=== PATIENT | female | born 1995 | race Caucasian/White ===

== ENCOUNTER 2017-09-25 01:03 | Emergency (ER) | payer SELFPAY ==
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
--- OUTSIDE RECORDS SUMMARY | 2017-09-25 01:06 | XMS REPORT | Summary of Care ---
:1995 Author Organization [facility] Address [address] [place], [place] [address]- Encounter HQ Ric(PRIYANKA) [id number] Date(s): 03/19/16 - 03/19/16 [facility] [address] [place] [address]- Discharge Diagnosis: Osteochondroma Discharge Disposition: Home or Self Care Attending Physician: Ravinder Sanchez MD Vital Signs Most recent to oldest [Reference Range]: 1 2 Temperature Oral [96.4-99.1 DegF] 98.0 DegF 98.2 DegF (03/19/16 12:03 PM) (03/19/16 10:57 AM) Blood Pressure [90-140/60-90 mmHg] 125/78 mmHg 133/83 mmHg (03/19/16 12:03 PM) (03/19/16 10:57 AM) Respiratory Rate [14-20 BRMIN] 16 BRMIN 18 BRMIN (03/19/16 12:03 PM) (03/19/16 10:57 AM) Peripheral Pulse Rate [60-100 bpm] 61 bpm 58 bpm (03/19/16 12:03 PM) *LOW* (03/19/16 10:57 AM) Weight 96.409 kg (03/19/16 10:57 AM) Problem List No data available for this section Allergies, Adverse Reactions, Alerts Substance Reaction Severity Status NKDA Active Medications No data available for this section Results No data available for this section Immunizations No data available for this section Procedures No data available for this section Social History Social History Type Response Smoking Status Light tobacco smoker; Previous treatment: None; Ready to change : No; Concerns about tobacco use in household: No; Exposure to Tobacco Smoke None; Cigarette Smoking Last 365 Days No; Reg Smoking Cessation Counseling Yes Assessment and Plan No data available for this section
--- OUTSIDE RECORDS SUMMARY | 2017-09-25 01:06 | XMS REPORT | Summary of Care ---
:1995 Author Organization [facility] Address [address] [place], [place] [address]- Encounter HQ Encntr_sonu(FIN) [id number] Date(s): 05/11/16 - 05/11/16 [facility] [address] [place] [address]- Discharge Disposition: Left Without Being Seen Vital Signs Most recent to oldest [Reference Range]: 1 Temperature Oral [96.4-99.1 DegF] 98.1 DegF (05/11/16 12:08 PM) Blood Pressure [90-140/60-90 mmHg] 107/76 mmHg (05/11/16 12:08 PM) Respiratory Rate [14-20 BRMIN] 18 BRMIN (05/11/16 12:08 PM) Peripheral Pulse Rate [60-100 bpm] 82 bpm (05/11/16 12:08 PM) Weight 90 kg (05/11/16 12:08 PM) Problem List No data available for this [...]
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
[2017-09-25] MEDS ORDERED: ACETAMINOPHEN 500 MG TAB ONE (01:44)
[2017-09-25 01:56] LABS: Urine Blood TRACE (NEG); Urine Glucose NEGATIVE (NEG); Urine Protein NEGATIVE (NEG); Urine Specific Gravity <1.005 (1.005-1.030); Urine pH 6.5 (5.0-7.0)
[2017-09-25 01:57] LABS: Absolute Lymphocytes (CBC) 2.4 K/uL (0.7-4.9); Absolute Monocytes 0.6 K/uL (0.1-1.3); Absolute Neutrophil 4.5 K/uL (1.8-8.0); Basophils % 0.7 % (0-1.3); Eosinophils % 1.8 % (0-4.4); Hematocrit 47.6 % (36.0-45.0); Lymphocytes % 31.4 % (15.3-44.8); MCV 96.9 fL (80-100); MPV 8.9 fL (7.6-11.3); Monocytes % 7.4 % (3.3-12.3); RBC Red Blood Cell Count 4.92 M/uL (3.86-4.86)
[2017-09-25 02:07] LABS: BUN Blood Urea Nitrogen 10 mg/dL (7-18); Bicarbonate 30 mmol/L (21-32); Glucose Level 63 mg/dL (74-106); Potassium 3.4 mmol/L (3.5-5.1); Sodium Level 143 mmol/L (136-145)
--- NOTE | 2017-09-25 02:28 | ER ---
Nurse's Notes [facility] Name: Titi Mcduffie Age: 22 yrs Sex: Female : 1995 Arrival Date: 09/25/2017 Time: 01:04 Bed 7 Private MD: Diagnosis: Abnormal uterine and vaginal bleeding, unspecified Presentation: 09/25 01:16 Presenting complaint: Patient states: she has an IUD which came out yesterday she was bb having vaginal bleeding about 4 days prior to this with abdominal cramping then tonight she went out and had a drink then had worse abdominal cramping she is also still bleeding similar to a menstrual cycle. Her last menstrual cycle was 4 years ago. Transition of care: patient was not received from another setting of care. Onset of symptoms was September 25, 2017. Risk Assessment: Do you want to hurt yourself or someone else? Patient reports no desire to harm self or others. Initial Sepsis Screen: Does the patient meet any 2 criteria? No. Patient's initial sepsis screen is negative. Does the patient have a suspected source of infection? No. Patient's initial sepsis screen is negative. Care prior to arrival: None. 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 - Social history:: Smoking status: Patient uses tobacco products, smokes one-half pack cigarettes per day, Patient uses alcohol, occasionally. Patient/guardian denies using street drugs. - Ebola Screening: : No symptoms or risks identified at this time. Screenin:30 Abuse screen: Denies threats or abuse. Denies injuries from another. Nutritional aa1 screening: No deficits noted. Tuberculosis screening: No symptoms or risk factors identified. Fall Risk None identified. Assessment: 01:30 General: Appears in no apparent distress. comfortable, Behavior is calm, cooperative, aa1 appropriate for age. General: Smells of alcohol. Pain: Complains of pain in suprapubic area Quality of pain is described as crushing. Neuro: Level of Consciousness is awake, alert, obeys commands, Oriented to person, place, time, situation, Moves all extremities. Full function Gait is steady. Respiratory: Airway is patent Respiratory effort is even, unlabored, Respiratory pattern is regular, symmetrical. GI: No signs and/or symptoms were reported involving the gastrointestinal system. : Urine is clear, Reports cramping, vaginal bleeding that is light flow. EENT: No signs and/or symptoms were reported regarding the EENT system. Derm: Skin is intact, is healthy with good turgor, Skin is pink, warm \T\ dry. Musculoskeletal: Circulation, motion, and sensation intact. Capillary refill < 3 seconds. 03:02 Reassessment: Patient appears in no apparent distress at this time. Patient and/or tl2 family updated on plan of care and expected duration. Pain level reassessed. Patient is alert, oriented x 3, equal unlabored respirations, skin warm/dry/pink. Pt ambulatory out of ER. Vital Signs: 01:24 BP 131 / 86; Pulse 87; Resp 16; Temp 97.1(O); Pulse Ox 98% on R/A; Weight 68.49 kg (R); bb Height 5 ft. 4 in. (162.56 cm) (R); Pain 6/10; 01:43 BP 108 / 70 Supine; Pulse 71; aa1 01:45 BP 112 / 76 Sitting; Pulse 79; aa1 01:47 BP 117 / 87 Standing; Pulse 85; aa1 01:24 Body Mass Index 25.92 (68.49 kg, 162.56 cm) ED Course: 01:04 Patient arrived in ED. ds1 01:22 Triage completed. bb 01:23 Hill Jaramillo PA is PHCP. cp 01:23 Hill Grady MD is Attending Physician. cp 01:24 Arm band placed on Patient placed in an exam room, on a stretcher, on pulse oximetry. bb Family accompanied patient. 01:25 Joy Walden, TAYLOR is Primary Nurse. aa1 01:30 Patient has correct armband on for positive identification. Bed in low position. Call aa1 light in reach. Pulse ox on. NIBP on. Warm blanket given. 01:40 Initial lab(s) drawn, by ED staff, sent to lab. Urine collected: clean catch specimen, aa1 clear. 03:02 No provider procedures requiring assistance completed. Patient did not have IV access tl2 during this emergency room visit. Administered Medications: 01:46 Drug: Tylenol 1000 mg Route: PO; aa1 03:04 Follow up: Response: No adverse reaction tl2 Outcome: 02:27 Discharge ordered by MD. iglesias 03:02 Discharged to home ambulatory, with family. tl2 03:02 Condition: stable 03:02 Discharge instructions given to patient, Instructed on discharge instructions, follow up and referral plans. 03:04 Patient left the ED. tl2 Signatures: Joy Walden, RN RN aa1 Augusta Cyr ds1 Donya Ulrich RN RN bb Hill Jaramillo PA PA cp Knox, Taylor RN RN tl2
--- NOTE | 2017-09-25 02:28 | EDPHYS ---
Physician Documentation [facility] Name: Titi Mcduffie Age: 22 yrs Sex: Female : 1995 Arrival Date: 09/25/2017 Time: 01:04 Bed 7 Private MD: ED Physician Hill Grady HPI: 09/25 01:30 This 22 yrs old Female presents to ER via Wheelchair with complaints of cp Vaginal Bleeding, Abdominal Cramping. 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 - Social history:: Smoking status: Patient uses tobacco products, smokes one-half pack cigarettes per day, Patient uses alcohol, occasionally. Patient/guardian denies using street drugs. - Ebola Screening: : No symptoms or risks identified at this time. ROS: 01:35 Constitutional: Negative for body aches, chills, fever, poor PO intake. cp 01:35 Positive for vaginal spotting, Negative for urinary symptoms. cp 01:35 Eyes: Negative for injury, pain, redness, and discharge. 01:35 Abdomen/GI: Positive for nausea, abdominal cramps, of the right lower quadrant and left lower quadrant, Negative for diarrhea, constipation, anorexia, active vomiting. 01:35 Back: Negative for pain at rest, pain with movement, radiated pain. 01:35 : Negative for urinary symptoms. 01:35 Skin: Negative for cellulitis, rash. 01:35 Neuro: Negative for altered mental status, dizziness, syncope, near syncope, weakness. 01:35 All other systems are negative. Exam: 01:40 Constitutional: The patient appears in no acute distress, alert, awake, non-toxic, well cp developed, well nourished. 01:40 Head/Face: Normocephalic, atraumatic. cp Vital Signs: 01:24 BP 131 / 86; Pulse 87; Resp 16; Temp 97.1(O); Pulse Ox 98% on R/A; Weight 68.49 kg (R); bb Height 5 ft. 4 in. (162.56 cm) (R); Pain 6/10; 01:43 BP 108 / 70 Supine; Pulse 71; aa1 01:45 BP 112 / 76 Sitting; Pulse 79; aa1 01:47 BP 117 / 87 Standing; Pulse 85; aa1 01:24 Body Mass Index 25.92 (68.49 kg, 162.56 cm) bb MDM: 01:23 Patient medically screened. cp 02:26 Data reviewed: vital signs, nurses notes, lab test result(s). Response to treatment: cp VSS. Patient sleeping in exam room. 09/25 01:32 Order name: CBC with Diff; Complete Time: 02:00 cp 09/25 02:00 Interpretation: Normal except: RBC 4.92; HGB 16.2; HCT 47.6. cp 09/25 01:32 Order name: BMP; Complete Time: 02:20 cp 09/25 02:20 Interpretation: K 3.4; CL 109; GLUC 63. cp 09/25 01:36 Order name: Test, Serum rg2 09/25 01:36 Order name: Test Serum, Qualitat; Complete Time: 02:20 EDMS 09/25 01:37 Order name: Urine Dipstick--Ancillary (enter results); Complete Time: 02:00 rg2 09/25 01:24 Order name: Orthostatics; Complete Time: 01:46 cp 09/25 01:24 Order name: Urine Dipstick-Ancillary (obtain specimen); Complete Time: 01:38 cp 09/25 01:24 Order name: Urine Test (obtain specimen); Complete Time: 01:38 cp Administered Medications: 01:46 Drug: Tylenol 1000 mg Route: PO; aa1 03:04 Follow up: Response: No adverse reaction tl2 Disposition: 09/25/17 02:27 Discharged to Home. Impression: Abnormal uterine and vaginal bleeding, unspecified. - Condition is Stable. - Discharge Instructions: Abnormal Uterine Bleeding, Dysfunctional Uterine Bleeding. - Medication Reconciliation Form, Thank You Letter, Antibiotic Education, Prescription Opioid Use form. - Follow up: Private Physician; When: 1 - 2 days; Reason: Recheck today's complaints. - Problem is new. - Symptoms have improved. Addendum: 09/27/2017 08:56 Co-signature as Attending Physician, Hill Grady MD I agree with the assessment and c rahman plan of care. Signatures: Dispatcher [employer] EDJoy Yung RN RN aa1 Hill Grady MD MD cha Ballard, Brenda RN RN Hill Matta, Evelyn Bell cp RN RN tl2 Corrections: (The following items were deleted from the chart) 09/25 01:38 01:24 Jenkins ordered. cp aa1 03:04 02:27 09/25/2017 02:27 Discharged to Home. Impression: Abnormal uterine and vaginal tl2 bleeding, unspecified. Condition is Stable. Forms are Medication Reconciliation Form, Thank You Letter, Antibiotic Education, Prescription Opioid Use. Follow up: Private Physician; When: 1 - 2 days; Reason: Recheck today's complaints. Problem is new. Symptoms have improved. cp
[2017-09-25 03:15] VITALS: TEMP 97.1; O2SAT 98
[2017-09-25 03:18] VITALS: BP 117/87
== END 2017-09-25 03:04 | disposition home or self-care (01) ==
LOC: ER 01:03
DX: N93.9 Abnormal uterine and vaginal bleeding, unspecified (principal); Z98.84 Bariatric surgery status; F17.210 Nicotine dependence, cigarettes, uncomplicated
CPT/HCPCS: 36415; 80048; 81003; 84703; 85025; 99283

== ENCOUNTER 2020-07-28 21:06 | Emergency (ER) | payer SELFPAY ==
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
--- NOTE | 2020-07-28 21:37 | ER ---
Nurse's Notes [facility] Name: Titi Mcduffie Age: 25 yrs Sex: Female : 1995 Arrival Date: 07/28/2020 Time: 21:08 Bed Waiting Private MD: Diagnosis: ED Course: 07/28 21:08 Patient arrived in ED. am4 Administered Medications: No medications were administered Outcome: 21:36 Patient left the ED. ea Signatures: Maryuri Renae RN RN Xena Connolly am4
== END 2020-07-28 21:36 | disposition left against medical advice (07) ==
LOC: ER 21:06
DX: Z02.9 Encounter for administrative examinations, unspecified (principal)

== ENCOUNTER 2022-10-04 18:27 | Emergency (ER) | payer OTHER ==
--- OUTSIDE RECORDS SUMMARY | 2022-10-04 18:38 | XMS REPORT | Continuity of Care Document ---
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 MATERNAL [id number] [address] 2021-07-02 2021-07-02 Emergency X GREGORY [facility] ERT [id number] Univers 18:29:00 19:31:00 [facility] 2021-07-02 2021-07-02 Emergency Gregory [facility] 1.2.907.176 [id number] Univers 18:29:00 19:31:00 Taran JIANG 350.1.13.10 i ty [facility] 4.2.7.2.686 [place] [id number] [facility] 084 [place] 2021-06-25 2021-06-25 Outpatient Danisha MILLER [facility] [id number] Univers 15:30:00 16:26:09 ROSEMYNDA ity o f [facility] 2021-06-25 2021-06-25 [facility] 1.2.840.114 [id number] Univers 15:30:00 16:26:09 Lizabethnda R HULL BUILDER 350.1.13.10 ity of Visit REGIONAL 4.2.7.2.686 Jeffrey as MATERNAL [id number] [facility] [address] [place] [address] 2021-06-25 2021-06-25 [facility] [id number] Univers 15:30:00 15:30:00 ROSEMYNDA ity o f [facility] 2021-06-25 2021-06-25 Orders Doctor PRASANTH 1.2.840.114 [id number] Univers 00:00:00 00:00:00 Only Unassigned, MARCO 350.1.13.10 ity of [place] [facility] 4.2.7.2.686 Jeffrey as [id number] [facility] 009 [place] 2021-06-16 2021-06-16 Abstract [facility] 1.2.840.114 [id number] Univers 00:00:00 00:00:00 Bri Bazzi HULL BUILDER 350.1.13.10 ity of REGIONAL 4.2.7.2.686 Jeffrey as MATERNAL [id number] [facility] CH[facility] [address] [place] [address] 2021-06-12 2021-06-12 Outpatient P NATASHA [facility] [id number] Univers 15:30:00 16:53:59 HILL ity of [facility] 2021-06-12 2021-06-12 Hotel Registration Clerk 5, [facility] Us Room UNIVERSIT 1 .2.840.114 [id number] Univers 15:30:00 16:00:00 Visit Hill Gracia [facility] 350.1.13.10 ity of CLINICS 4.2.7.2.[place] [id number] [facility] [address] [place] 2021-06-12 2021-06-12 Outpatient P NATASHA [facility] [id number] Univers 15:30:00 15:30:00 HILL ity of [facility] 2021-06-12 2021-06-12 Telephone [facility] 1.2.151.641 [id number] Univers 00:00:00 00:00:00 Roshunda R HULL BUILDER 350.1.13.10 ity of [employer] 4.2.7.2.686 Jeffrey as MATERNAL [id number] [facility] [address] [place] [address] 2021-06-11 2021-06-11 Outpatient Danisha MILLER [facility] [id number] Univers 10:30:00 11:05:20 ROSHUNDA ity o f [facility] 2021-06-11 2021-06-11 [facility] 1.2.840.114 [id number] Univers 10:30:00 11:05:20 Roshunda R HULL BUILDER 350.1.13.10 ity of [facility] 4.2.7.2.686 Jeffrey as MATERNAL [id number] [facility] & CHILD [address] [place] [address] 2021-06-11 2021-06-11 Outpatient Danisha MILLER [facility] [id number] Univers 10:30:00 10:30:00 ROSEMYNDA ity o f [facility] 2021-05-30 2021-05-30 Outpatient P STEVE TEJADAN [facility] JIGAR [id number] Univers 14:40:00 16:44:00 ity of [facility] 2021-05-30 2021-05-30 [facility] Steve Tejadan [facility] 1.2.840.114 [id number] Univers 14:40:00 16:44:00 Encounter [place] 350.1.13.10 ity [facility] 4.2.7.2.[address] [place] [facility] [id number] [address] 2021-05-30 2021-05-30 Outpatient R PHYLICIA FISHER [facility] [id number] Univers 10:30:00 10:30:00 ity of [facility] 2021-05-26 2021-05-26 Outpatient Danisha MILLER [facility] [id number] Univers 16:15:00 16:15:00 ROSHUNDA ity o f [facility] 2021-05-232021-05-23 Abstract [facility] 1.2.840.114 [id number] Univers 00:00:00 00:00:00 Bri C HULL BUILDER 350.1.13.10 ity of [employer] 4.2.7.2.686 Jeffrey as MATERNAL [id number] [facility] & CHILD [address] [place] [address] 2021-05-23 2021-05-23 [facility] 1.2.840.114 [id number] Univers 00:00:00 00:00:00 Rbi C HULL BUILDER 350.1.13.10 ity of [employer] 4.2.7.2.686 Jeffrey as MATERNAL [id number] [address] 2021-05-22 2021-05-22 Outpatient P PAULA HENLEY [facility] [id number] Univers 15:30:00 16:46:54 [facility] 2021-05-22 2021-05-22 Outpatient P PAULA HENLEY [facility] [id number] Univers 15:30:00 16:46:54 [facility] 2021-05-22 2021-05-22 Hotel Registration Clerk 4, [facility] Us Room UNIVERSIT 1 .2.840.114 [id number] Univers 15:30:00 16:46:54 Visit Paula Henley [facility] 350.1.13.10 ity of [facility] 4.2.7.2.[place] [id number] [address] 2021-05-21 2021-05-21 Telephone [facility] 1.2.699.826 [id number] Univers 00:00:00 00:00:00 Elier R HULL BUILDER 350.1.13.10 ity of [employer] 4.2.7.2.686 Jeffrey as MATERNAL [id number] [facility] & CHILD [address] [place] [address] 2021-05-16 2021-05-16 Outpatient R [facility] [id number] Univers 11:15:00 11:15:00 ATTENDING ity [facility] 2021-05-16 2021-05-16 Outpatient R JAMEY [facility] [id number] Univers 11:15:00 11:15:00 ATTENDING ity of [facility] 2021-05-14 2021-05-14 Outpatient Danisha MILLER [facility] [id number] Univers 09:30:00 09:51:49 ROSHUNDA ity o f [facility] 2021-05-14 2021-05-14 [facility] 1.2.840.114 [id number] Univers 09:30:00 09:51:49 Rosemynda R HULL BUILDER 350.1.13.10 ity of Visit [employer] 4.2.7.2.686 Jeffrey as MATERNAL [id number] [facility] & CHILD [address] [place] [address] 2021-05-14 2021-05-14 Outpatient Danisha MILLER [facility] [id number] Univers 09:30:00 09:30:00 ROSNDA itarielle o Formerly [facility] 2021 2021 Nurse PRASANTH Osorio 1.2.840.114 [id number] Univers 00:00:00 00:00:00 Triage Terrance LARA 350.1.13.10 ity of [facility] 4.2.7.2.686 Jeffrey as [id number] [address] 2021-04-30 2021-04-30 Abstract [facility] 1.2.840.114 [id number] Univers 00:00:00 00:00:00 Bri Bazzi HULL BUILDER 350.1.13.10 ity of [employer] 4.2.7.2.686 Jeffrey as MATERNAL [id number] [facility] [address] [place] [address] 2021-04-29 2021-04-29 Outpatient Danisha MILLER [facility] [id number] Univers 14:00:00 14:00:00 LIZABETHNDA kimani o f [facility] 2021-04-25 2021-04-25 Outpatient Danisha MILLER [facility] [id number] Univers 08:30:00 08:30:00 ROSEMYNDA kimani o f [facility] 2021-04-25 2021-04-25 Outpatient R ANGELA [facility] [id number] Univers 08:30:00 08:30:00 LIZBETHA prashanthy o f [facility] 2021-04-25 2021-04-25 Outpatient R ANGELA [facility] [id number] Univers 08:30:00 08:30:00 LIZBETHA prashanthy o f [facility] 2021-04-25 2021-04-25 Telephone [facility] 1.2.169.811 [id number] Univers 00:00:00 00:00:00 Lizabethbrandie R HULL BUILDER 350.1.13.10 ity of [employer] 4.2.7.2.686 Jeffrey as MATERNAL [id number] [facility] ical & CHILD [address] [place] [address] 2021-04-25 2021-04-25 Abstract Neodavinliza [facility] 1.2.840.114 [id number] Univers 00:00:00 00:00:00 Bri Bazzi HULL BUILDER 350.1.13.10 ity of [employer] 4.2.7.2.686 Jeffrey as MATERNAL [id number] [facility] ical & CHILD [address] [place] [address] 2021-04-24 2021-04-24 Hotel Registration Clerk 3, [facility] Us Room UNIVERSIT 1 .2.840.114 [id number] Univers 14:45:00 16:56:20 Visit Heriberto Ferreira [facility] 350.1.13.10 ity of [facility] 4.2.7.2.[place] [id number] [address] 2021-04-24 2021-04-24 Outpatient P [facility] [id number] Univers 14:45:00 14:45:00 itarielle [facility] 2021-04-24 2021-04-24 Outpatient P HENRI [facility] [id number] Univers 14:45:00 14:45:00 HERIBERTO harman [facility] 2021-04-23 2021-04-23 [facility] [id number] Univers 11:00:00 11:00:00 LIZABETHNDA kimani o f [facility] 2021-04-23 2021-04-23 Out[facility] [id number] Univers 11:00:00 11:00:00 LIZABETHNDA ity o f [facility] 2021-04-23 2021-04-23 Telephone [facility] 1.2.840.114 [id number] Univers 00:00:00 00:00:00 Bri Bazzi HULL BUILDER 350.1.13.10 ity of [employer] 4.2.7.2.686 Jeffrey as MATERNAL [id number] Med ical & CHILD [address] [place] [address] 2021-04-17 2021-04-17 Emergency X FABIEN, K [facility] ERT [id number] Univers 10:40:00 13:45:00 ity of [facility] 2021-04-17 2021-04-17 Emergency Fabien, Bruce [facility] 1.2.840.114 [id number] Univers 10:40:00 13:45:00 Lorena [place] 350.1.13.10 i ty [facility] 4.2.7.2.[address] [place] [facility] [id number] [facility] 084 [place] 2021-04-17 2021-04-17 Nurse PRASANTH Chiang 1.2.840.114 [id number] Univers 00:00:00 00:00:00 Triage Marysol LARA 350.1.13.10 it y of [facility] 4.2.7.2.686 Jeffrey as [id number] [facility] 019 [place] 2021-04-17 2021-04-17 Orders Doctor PRASANTH 1.2.840.114 [id number] Univers 00:00:00 00:00:00 Only Unassigned, MARCO 350.1.13.10 ity of [place] [facility] 4.2.7.2.686 Jeffrey as [id number] [facility] 009 [place] 2021-04-17 2021-04-17 Telephone [facility] 1.2.840.114 [id number] Univers 00:00:00 00:00:00 Bri Bazzi HULL BUILDER 350.1.13.10 ity of [employer] 4.2.7.2.686 Jeffrey as MATERNAL [id number] [facility] CH[facility] [address] [place] [address] 2021-04-17 2021-04-17 [facility]phone [facility] 1.2.859.680 [id number] Univers 00:00:00 00:00:00 Roshunda R HULL BUILDER 350.1.13.10 ity of REGIONAL 4.2.7.2.686 Jeffrey as MATERNAL [id number] Med ical & CHILD [address] [place] [address] 2021-04-16 2021-04-16 Outpatient R AKINSIPE, [facility] [id number] Univers 09:00:00 09:44:05 BRI ity o f [facility] 2021-04-16 2021-04-16 Routine [facility] 1.2.070.804 [id number] Univers 09:00:00 09:44:05 Bri C HULL BUILDER 350.1.13.10 ity of Visit REGIONAL 4.2.7.2.686 Jeffrey as MATERNAL [id number] [facility] CHILD [address] [place] [address] 2021-04-16 2021-04-16 Outpatient R AKINSIPE, [facility] [id number] Univers 09:00:00 09:44:05 BRI ity o [facility] 2021-04-16 2021-04-16 Outpatient R AKINSIPE, [facility] [id number] Univers 09:00:00 09:00:00 BRI ity o [facility] 2021-04-14 2021-04-14 Telephone [facility] 1.2.877.252 [id number] Univers 00:00:00 00:00:00 Roshunda R HULL BUILDER 350.1.13.10 ity of REGIONAL 4.2.7.2.686 Jeffrey as MATERNAL [id number] [facility] CHILD [address] [place] [address] 2021-04-08 2021-04-08 [facility] 1.2.840.114 [id number] Univers 00:00:00 00:00:00 Roshunda R HULL BUILDER 350.1.13.10 ity of REGIONAL 4.2.7.2.686 Jeffrey as MATERNAL [id number] [facility] ical & CHILD [address] [place] [address] 2021-04-03 2021-04-03 Outpatient P MAUREEN [facility] [id number] Univers 13:00:00 14:00:41 CHASEY ity of [facility] 2021-04-03 2021-04-03 Hotel Registration Clerk 5, [facility] Us Room UNIVERSIT 1 .2.840.114 [id number] Univers 13:00:00 14:00:41 Visit Elier Miller [facility] 350.1.13.1 0 ity of Shaunna [facility] 4.2.7.2. 686 [place] [id number] 2021-04-02 2021-04-02 Telephone [facility] 1.2.119.300 [id number] Univers 00:00:00 00:00:00 Elier Raman HULL BUILDER 350.1.13.10 ity of REGIONAL 4.2.7.2.686 Jeffrey as MATERNAL [id number] Med ical & CHILD [address] [place] [address] 2021-04-01 2021-04-01 Telephone [facility] 1.2.178.102 [id number] Univers 00:00:00 00:00:00 Patient HULL BUILDER 350.1.13.10 it y of Does Not [place].2.686 [place] MATERNAL [id number] [facility] & [address] 2021-03-28 2021-03-28 Outpatient R ANGELA [facility] [id number] Univers 14:30:00 15:20:36 ELIER harman o f [facility] 2021-03-28 2021-03-28 Initial Elier Miller [facility] 1.2.840 .114 [id number] Univers 14:30:00 15:20:36 AkinBri gibbs C HULL BUILDER 350.1.13 .10 ity of Visit REGIONAL 4.2.7.2.686 Jeffrey as MATERNAL [phone] [facility] ical & CHILD [address] [place] [address] 2021-03-28 2021-03-28 [facility] [id number] Univers 14:00:00 14:45:04 ROSSEMAJ ity o f [facility] 2021-03-28 2021-03-28 Outpatient R ANGELA, [facility] [id number] Univers 14:00:00 14:45:04 ELIER kimani o f [facility] 2021-03-28 2021-03-28 Orders Doctor PRASANTH 1.2.840.114 [id number] Univers 00:00:00 00:00:00 Only Unassigned, MARCO 350.1.13.10 ity of [facility] 4.2.7.2.686 Jeffrey as [id number] [place] [address] [place] 2019-04-10 2019-04-10 Emergency [facility] 1.2.325.283 [id number] Univers 11:13:16 12:18:00 Morgan Jiang 350.1.13.10 i ty of [place] 4.2.7.2.686 [place] [id number] [place] [id number] [place] 2019-04-10 2019-04-10 Emergency [facility] 1.2.258.612 [id number] 11:13:16 12:18:00 Morganblaire Jiang 350.1.13.10 [place] 4.2.7.2.686 [place] [id number] [facility] 2019-04-10 2019-04-10 Emergency X [facility] ERT [id number] Univers 11:07:00 11:07:00 ity of [facility] 2019-04-10 2019-04-10 Orders Doctor RADER 1.2.840.114 [id number] Univers 00:00:00 00:00:00 Only Unassigned, MARCO 350.1.13.10 ity of [place] 4.2.7.2.686 Jeffrey as [id number] [place] [address] [place] 2019-04-10 2019-04-10 Orders Doctor RADER 1.2.840.114 [id number] 00:00:00 00:00:00 Only Unassigned, MARCO 350.1.13.10 [facility] 4.2.7.2.686 [id number] 2016-05-11 2016-05-11 Emergency [facility] [id number] Memoria 17:06:00 20:04:00 r Radisson 03 l [place] 2016-05-11 2016-05-11 Outpatient [facility] [id number] 12:06:00 15:04:00 2016-03-19 2016-03-19 Emergency nullFlavo [facility] [id number] Memoria 16:48:00 18:35:00 r Radisson 02 l [place] 2016-03-19 2016-03-19 Outpatient Ravinder Sanchez [facility] [id number] 10:48:00 12:35:00 2015-12-14 2015-12-14 Emergency nullFlavo [facility] 26019 [id number] Memoria 01:56:00 07:10:00 r Radisson 01 l [place] 2015-12-13 2015-12-14 Outpatient Michael [facility] [id number] 20:56:00 02:10:00 Frida Crandall Results Test Description Test Time Test Comments Results Result Comments Source CHEM PANEL 2015-12-14 05:46:00 Test Item Value Reference Range Interpretation Comme nts B/C Ratio (test code = B/C Ratio) 12 6-25 [facility] [id number] 05:46:00 Test Item Value Reference Range Interpretation Comments AGAP (test code = AGAP) 10.5 10.0-20.0 [facility] [id number] 05:46:00 Test Item Value Reference Range Interpretation Comments Globulin (test code = Globulin) 3.2 2.7-4.2 [facility] [id number] 05:46:00 Test Item Value Reference Range Interpretation Comments A/G Ratio (test code = A/G Ratio) 1.1 0.7-1.6 [facility] [id number] 05:46:00 Test Item Value Reference Range Interpretation Comments Bili Total (test code = Bili Total) 1.3 0.2-1.3 [facility] [id number] 05:46:00 Test Item Value Reference Range Interpretation Comments ALT (test code = ALT) 38 See_Comment [Auto mated message] The system which ge nerated this result transmit celia reference range : <=65. The reference range was not used to interpr et this result as sharri l/abnormal. [facility] [id number] 05:46:00 Test Item Value Reference Range Interpretation Comments Albumin Lvl (test code = Albumin Lvl) 3.6 3.5-5.0 [facility]2016-11-05 05:46:00 Test Item Value Reference Range Interpretation Comments Total Protein (test code = Total 6.8 6.4-8.4 Protein) [facility]2016-11-05 05:46:00 Test Item Value Reference Range Interpretation Comments Alk Phos (test code = Alk Phos) 99 39-136 [facility]2016-11-05 05:46:00 Test Item Value Reference Range Interpretation Comments AST (test code = AST) 21 See_Comment [Auto mated message] The system which ge nerated this result transmit celia reference range : <=37. The reference range was not used to interpr et this result as sharri l/abnormal. [facility]2016-11-05 05:46:00 Test Item Value Reference Range Interpretation Comments Sodium Lvl (test code = Sodium Lvl) 139 135-145 [facility]2016-11-05 05:46:00 Test Item Value Reference Range Interpretation Comments Chloride Lvl (test code = Chloride Lvl) 104 95-109 [facility]2016-11-05 05:46:00 Test Item Value Reference Range Interpretation Comments Potassium Lvl (test code = Potassium 3.5 3.5-5.1 Lvl) [facility]2016-11-05 05:46:00 Test Item Value Reference Range Interpretation Comments Calcium Lvl (test code = Calcium Lvl) 8.7 8.5-10.5 [facility]2016-11-05 05:46:00 Test Item Value Reference Range Interpretation Comments CO2 (test code = CO2) 28 24-32 [facility]2016-11-05 05:46:00 Test Item Value Reference Range Interpretation Comments eGFR (test code = eGFR) 118 [facility]2016-11-05 05:46:00 Test Item Value Reference Range Interpretation Comments BUN (test code = BUN) 9 7-22 [facility]2016-11-05 05:46:00 Test Item Value Reference Range Interpretation Comments Creatinine Lvl (test code = Creatinine 0.73 0.50-1.40 Lvl) [facility]2016-11-05 05:46:00 Test Item Value Reference Range Interpretation Comments Glucose Lvl (test code = Glucose Lvl) 88 70-99 [id number] 05:46:00 Test Item Value Reference Range Interpretation Comments MCV (test code = MCV) 89.7 80.0-98.0 [facility] CenterUpdeslpBPIGWBCQZE2349-60-29 05:46:00 Test Item Value Reference Range Interpretation Comments Hct (test code = Hct) 45.7 36.0-48.0 [facility] CenterOgjkpooEKFUUIPQWZ8350-09-04 05:46:00 Test Item Value Reference Range Interpretation Comments Hgb (test code = Hgb) 14.9 12.0-16.0 [facility] CenterFamegytKETTNUPVEB9488-99-86 05:46:00 Test Item Value Reference Range Interpretation Comments RBC (test code = RBC) 5.09 4.20-5.40 [facility] CenterFvfmkbrETGEFSNAES4786-88-17 05:46:00 Test Item Value Reference Range Interpretation Comments MPV (test code = MPV) 9.4 7.4-10.4 [facility] [id number] 05:46:00 Test Item Value Reference Range Interpretation Comments Platelet (test code = Platelet) 222 133-450 [facility] CenterBucjrcfOKWBMUCEVR0689-05-79 05:46:00 Test Item Value Reference Range Interpretation Comments WBC (test code = WBC) 9.4 3.7-10.4 [facility] [id number] 05:46:00 Test Item Value Reference Range Interpretation Comments RDW (test code = RDW) 14.5 11.5-14.5 [facility] [id number] 05:46:00 Test Item Value Reference Range Interpretation Comments MCHC (test code = MCHC) 32.5 32.0-36.0 [facility] C[id number] 05:46:00 Test Item Value Reference Range Interpretation Comments MCH (test code = MCH) 29.2 pg 27.0-31.0 [facility] C[id number] 05:46:00 Test Item Value Reference Range Interpretation Comments Lymphocytes # (test code = Lymphocytes 2.9 1.0-5.5 #) [facility] CenterZqltkyrNOQFFWFHWZ0043-27-80 05:46:00 Test Item Value Reference Range Interpretation Comments Monocytes # (test code 0.5 See_Comment [Aut omated message] The = Monocytes #) system which generated this result tra nsmitted reference range : <=0.8. The reference r charles was not used to int erpret this result as normal/abnormal . [facility] Cent[id number] 05:46:00 Test Item Value Reference Range Interpretation Comments Eosinophils # (test code 0.3 See_Comment [A utomated message] The = Eosinophils #) system whic h generated this result tra nsmitted reference range : <=0.5. The reference r charles was not used to int erpret this result as normal/abnormal . [facility] CenterDwahephFZHAZDFBVU4423-32-49 05:46:00 Test Item Value Reference Range Interpretation Comments Segs (test code = Segs) 59.8 45.0-75.0 [facility] [id number] 05:46:00 Test Item Value Reference Range Interpretation Comments Lymphocytes (test code = Lymphocytes) 31.1 20.0-40.0 [facility] CenterJapwfrkGUCQFJPXRG4507-27-65 05:46:00 Test Item Value Reference Range Interpretation Comments Monocytes (test code = Monocytes) 5.7 2.0-12.0 [facility] Cent[id number] 05:46:00 Test Item Value Reference Range Interpretation Comments Basophils # (test code 0.1 See_Comment [Aut omated message] The = Basophils #) system which generated this result tra nsmitted reference range : <=0.2. The reference r charles was not used to int erpret this result as normal/abnormal . [facility] CenterAkurxctUMUHCLBLNY5830-65-73 05:46:00 Test Item Value Reference Range Interpretation Comments Eosinophils (test code = 2.8 See_Comment [A utomated message] The Eosinophils) system which ge nerated this result tra nsmitted reference range : <=4.0. The reference r charles was not used to int erpret this result as normal/abnormal . [facility] [id number] 05:46:00 Test Item Value Reference Range Interpretation Comments Basophils (test code = 0.6 See_Comment [Aut omated message] The Basophils) system which ge nerated this result tra nsmitted reference range : <=1.0. The reference r charles was not used to int erpret this result as normal/abnormal . [facility] [id number] 05:46:00 Test Item Value Reference Range Interpretation Comments Segs-Bands # (test code = Segs-Bands #) 5.6 1.5-8.1 [facility] [id number] 05:46:00 Test Item Value Reference Range Interpretation Comments Hep C Ab (test code = Negative *NA*(12/14/15 Hep C Ab) 12:46 AM) [facility] [id number] 05:46:00 Test Item Value Reference Range Interpretation Comments Hep A IgM (test code Negative *NA*(12/14/15 = Hep A IgM) 12:46 AM) [facility] [id number] 05:46:00 Test Item Value Reference Range Interpretation Comments Hep Bs Ag (test code Negative *NA*(12/14/15 = Hep Bs Ag) 12:46 AM) [facility] [id number] 05:46:00 Test Item Value Reference Range Interpretation Comments Hep B Core IgM (test Negative *NA*(12/14/15 code = Hep B Core 12:46 AM) IgM) [facility] AND [id number] 05:46:00 Test Item Value Reference Range Interpretation Comments UA Leuk Est (test Moderate *ABN*(12/14/15 code = UA Leuk Est) 12:46 AM) [facility] [id number] 05:46:00 Test Item Value Reference Range Interpretation Comments UA Bili (test code = Small *ABN*(12/14/15 UA Bili) 12:46 AM) [facility] [id number] 05:46:00 Test Item Value Reference Range Interpretation Comments UA Sq Epi (test code = UA Sq Epi) Many /LPF [facility] [id number] 05:46:00 Test Item Value Reference Range Interpretation Comments UA WBC (test code = 61 See_Comment [Automa celia message] The UA WBC) system which ge nerated this result transmit celia reference range : <=5. The reference range was not used to interpr et this result as sharri l/abnormal. [facility] [id number] 05:46:00 Test Item Value Reference Range Interpretation Comments UA Blood (test code = Negative (12/14/15 12:46 UA Blood) AM) [facility] AND [id number] 05:46:00 Test Item Value Reference Range Interpretation Comments UA Nitrite (test code Negative (12/14/15 12:46 = UA Nitrite) AM) [facility] AND [id number] 05:46:00 Test Item Value Reference Range Interpretation Comments UA Urobilinogen (test code = UA 2.0 0.1-1.0 Urobilinogen) [facility] AND [id number] 05:46:00 Test Item Value Reference Range Interpretation Comments UA Glucose (test code = UA Negative mg/dL Glucose) [facility] AND [id number] 05:46:00 Test Item Value Reference Range Interpretation Comments UA Ketones (test code = UA Trace mg/dL Ketones) [facility] AND [id number] 05:46:00 Test Item Value Reference Range Interpretation Comments UA pH (test code = UA pH) 5.0 5.0-8.0 [facility] AND [id number] 05:46:00 Test Item Value Reference Range Interpretation Comments UA Protein (test code = UA Protein) 30 mg/dL [facility] AND [id number] 05:46:00 Test Item Value Reference Range Interpretation Comments UA Turbidity (test code Marked *ABN*(12/14/15 = UA Turbidity) 12:46 AM) [facility] AND [id number] 05:46:00 Test Item Value Reference Range Interpretation Comments UA Spec Grav (test code = UA Spec Grav) 1.028 [facility] AND [id number] 05:46:00 Test Item Value Reference Range Interpretation Comments UA Color (test code = Yellow *NA*(12/14/15 UA Color) 12:46 AM) [facility] AND [id number] 05:46:00 Test Item Value Reference Range Interpretation Comments UA Bacteria (test code = UA Occasional /HPF Bacteria) [facility] AND [id number] 05:46:00 Test Item Value Reference Range Interpretation Comments UA Mucus (test code = UA Mucus) Many /LPF [facility] Notes Date/Time Note Provider Source 2016-03-19 11:47:08-00:00 EXAMINATION: Left knee series [place] HISTORY: Medial distal left thigh mass; distal l eft femoral osteochondroma FINDINGS: 3 views of the left knee are performed without comparison. There is a pedunculated oste ochondroma arising from the anteromedial aspect of the supracondylar distal left femur measuring approximately 3.3 cm in total length with evidence of characteristic cortical and medullary continuity. T here are no fractures. The joint spaces are normal. There is no knee effusion. IMPRESSION: 1. Pedunculated osteochondro ma arising from the anteromedial aspect of the supracondylar distal left femur. 2. No acute fracture or effusion of the left kne e.
[2022-10-04] MEDS ORDERED: IBUPROFEN 400 MG TAB ONE (19:48)
[2022-10-04] MEDS ORDERED: IBUPROFEN 200 MG TAB PO ONE (19:49)
[2022-10-04] MEDS ORDERED: HYDROCODONE/APAP 7.5/325 MG TAB ONE (19:49)
--- NOTE | 2022-10-04 20:51 | RAD REPORT ---
EXAM DESCRIPTION: US - Extremity Venous Uni Ltd - 10/04/2022 8:16 pm CLINICAL HISTORY: Pain COMPARISON: None. TECHNIQUE: Real-time sonographic evaluation of the right upper extremity deep venous system was perf ormed. FINDINGS: Normal compressibility, flow augmentation, phasic flow and spontaneous flow is identified in the right upper extremity deep venous system. No intraluminal filling defects seen. IMPRESSION: No DVT in the right upper extremity.
--- NOTE | 2022-10-04 20:53 | EDPHYS ---
Physician Documentation [facility] Name: Titi Mcduffie Age: 27 yrs Sex: Female : 1995 Arrival Date: 10/04/2022 Time: 18:27 Bed 10 Private MD: ED Physician Hill Grady HPI: 10/04 21:21 This 27 yrs old Female presents to ER via Ambulatory with complaints of Arm Pain. snw 21:21 The patient or guardian complains of a crush injury, caught in a rope while pt was snw sliding down a water slide. The complaints affect the dorsal aspect of right forearm and palmar aspect of right forearm. Onset: The symptoms/episode began/occurred suddenly, yesterday, and became persistent. Associated signs and symptoms: Pertinent positives: pain, swelling, of the palmar aspect of right forearm and dorsal aspect of right forearm. Severity of symptoms: At their worst the symptoms were moderate. The patient has not experienced similar symptoms in the past. It is unknown whether or not the patient has recently seen a physician. 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 - Social history:: Smoking status: Reported history of juuling and/or vaping. ROS: 21:20 Constitutional: Negative for fever, chills, and weight loss, Eyes: Negative for injury, snw pain, redness, and discharge, ENT: Negative for injury, pain, and discharge, Neck: Negative for injury, pain, and swelling, Cardiovascular: Negative for chest pain, palpitations, and edema, Respiratory: Negative for shortness of breath, cough, wheezing, and pleuritic chest pain, Abdomen/GI: Negative for abdominal pain, nausea, vomiting, diarrhea, and constipation, Back: Negative for injury and pain, : Negative for injury, bleeding, discharge, and swelling, Skin: Negative for injury, rash, and discoloration, Neuro: Negative for headache, weakness, numbness, tingling, and seizure, Psych: Negative for depression, anxiety, suicide ideation, homicidal ideation, and hallucinations. 21:20 MS/extremity: Positive for pain, swelling, tenderness, tingling, of the dorsal aspect of right forearm and palmar aspect of right forearm. Exam: 19:32 Constitutional: This is a well developed, well nourished patient who is awake, alert, snw and in no acute distress. Head/Face: Normocephalic, atraumatic. Eyes: Pupils equal round and reactive to light, extra-ocular motions intact. Lids and lashes normal. Conjunctiva and sclera are non-icteric and not injected. Cornea within normal limits. Periorbital areas with no swelling, redness, or edema. Chest/axilla: Normal chest wall appearance and motion. Nontender with no deformity. No lesions are appreciated. Cardiovascular: Regular rate and rhythm with a normal S1 and S2. No gallops, murmurs, or rubs. Normal PMI, no JVD. No pulse deficits. Respiratory: Lungs have equal breath sounds bilaterally, clear to auscultation and percussion. No rales, rhonchi or wheezes noted. No increased work of breathing, no retractions or nasal flaring. Back: No spinal tenderness. No costovertebral tenderness. Full range of motion. Skin: Warm, dry with normal turgor. Normal color with no rashes, no lesions, and no evidence of cellulitis. Neuro: Awake and alert, GCS 15, oriented to person, place, time, and situation. Cranial nerves II-XII grossly intact. Motor strength 5/5 in all extremities. Sensory grossly intact. Cerebellar exam normal. Normal gait. Psych: Awake, alert, with orientation to person, place and time. Behavior, mood, and affect are within normal limits. 19:32 Musculoskeletal/extremity: Extremities: grossly normal except: contusion, pain, swelling, ROM: no acute changes, Circulation is intact in all extremities. Severe pain noted. Compartment Syndrome exam of affected extremity: no tingling, no sensation deficit, no palor, no weak pulses. Vital Signs: 19:01 BP 177 / 102; Pulse 88; Resp 17; Temp 97.7; Pulse Ox 100% ; Weight 79.38 kg; Height 5 jl7 ft. 4 in. ; Pain 8/10; 19:01 Body Mass Index 30.04 (79.38 kg, 162.56 cm) jl7 19:01 Pain Scale: Adult jl7 MDM: 19:17 Patient medically screened. snw 21:19 Differential diagnosis: closed fracture, contusion, tendonitis. Data reviewed: vital snw signs, nurses notes, radiologic studies, ultrasound. I considered the following discharge prescriptions or medication management in the emergency department Medications were administered in the Emergency Department. See MAR. Counseling: I had a detailed discussion with the patient and/or guardian regarding the historical points, exam findings, and any diagnostic results supporting the discharge/admit diagnosis, radiology results, the need for outpatient follow up, for definitive care, to return to the emergency department if symptoms worsen or persist or if there are any questions or concerns that arise at home. Response to treatment: the patient's symptoms have markedly improved after treatment. Special discussion: I have referred the patient to see his PCP for further evaluation of high blood pressure. Based on the history and exam findings, there is no indication for further emergent testing or inpatient evaluation. I discussed with the patient/guardian the need to see the orthopedic surgeon for further evaluation of the symptoms. I discussed with the patient/guardian the need to see the primary care provider for further evaluation of the symptoms. ED course: + pulses, cap refill, sensation. 10/04 19:24 Order name: Forearm Right XRAY snw 10/04 19:24 Order name: US Extremity Venous Unilateral Ltd; Complete Time: 20:51 snw 10/04 20:59 Order name: Sling; Complete Time: 21:03 snw Administered Medications: 19:40 Drug: Hydrocodone-Acetaminophen PO (7.5 mg-325 mg) 1 tabs Route: PO; vc1 21:03 Follow up: Response: No adverse reaction as6 19:40 Drug: Ibuprofen PO 600 mg Route: PO; vc1 21:03 Follow up: Response: No adverse reaction as6 Disposition Summary: 10/04/22 20:52 Discharge Ordered Location: Home snw Condition: Stable snw Diagnosis - Contusion of forearm snw Followup: snw - With: Emergency Department - When: As needed - Reason: Worsening of condition Followup: snw - With: Private Physician - When: 2 - 3 days - Reason: Recheck today's complaints, Continuance of care, Re-evaluation by your physician Discharge Instructions: - Discharge Summary Sheet snw - Contusion snw - Hypertension, Adult snw - Myopathy snw - How to Use a Sling snw - Form - Blood Pressure Record Sheet snw - How to Take Your Blood Pressure snw Forms: - Work release form snw - Medication Reconciliation Form snw - Thank You Letter snw - Antibiotic Education snw - Prescription Opioid Use snw - Patient Portal Instructions snw - Leadership Thank You Letter snw Prescriptions: - acetaminophen-codeine 300-15 mg Oral tablet - take 1 tablet by ORAL route every 6-8 hours as needed for pain; 18 tablet; snw Refills: 0, Product Selection Permitted - Mobic 7.5 mg Oral Tablet - take 1 tablet by ORAL route once daily take with food; 20 tablet; Refills: 0, snw Product Selection Permitted Signatures: Dispatcher [employer] Debbie Wright, SUPERVISOR BOILERMAKING SHOP-C SUPERVISOR BOILERMAKING SHOP-Csnw Yandel Barriga, RN RN jl7 Mehreen Boogie RN RN vc1 Mckay Hart RN as6
--- NOTE | 2022-10-04 20:53 | ER ---
Nurse's Notes [facility] Name: Titi Mcduffie Age: 27 yrs Sex: Female : 1995 Arrival Date: 10/04/2022 Time: 18:27 Bed 10 Private MD: Diagnosis: Contusion of forearm Presentation: 10/04 19:01 Chief complaint: Patient states: Going down a slide yesterday, right forearm got caught jl7 in rope, reports pain to right forearm, swelling noted. Coronavirus screen: At this time, the client does not indicate any symptoms associated with coronavirus-19. Ebola Screen: No symptoms or risks identified at this time. Initial Sepsis Screen: Does the patient meet any 2 criteria? No. Patient's initial sepsis screen is negative. Does the patient have a suspected source of infection? No. Patient's initial sepsis screen is negative. Risk Assessment: Do you want to hurt yourself or someone else? Patient reports no desire to harm self or others. Onset of symptoms was October 03, 2022. 19:01 Method Of Arrival: Ambulatory jl7 19:01 Acuity: ANITA 4 jl7 Triage Assessment: 19:02 General: Appears in no apparent distress. uncomfortable, Behavior is calm, cooperative, jl7 appropriate for age. Pain: Complains of pain in right arm Pain currently is 8 out of 10 on a pain scale. 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 - Social history:: Smoking status: Reported history of juuling and/or vaping. Screenin:23 [facility] ED Fall Risk Assessment (Adult) History of falling in the last 3 months, vc1 including since admission No falls in past 3 months (0 pts) Confusion or Disorientation No (0 pts) Intoxicated or Sedated No (0 pts) Impaired Gait No (0 pts) Mobility Assist Device Used No (0 pt) Altered Elimination No (0 pt) Score/Fall Risk Level 0 - 2 = Low Risk Oriented to surroundings, Maintained a safe environment, Educated pt \T\ family on fall prevention, incl call for assistance when getting out of bed. Abuse screen: Denies threats or abuse. Nutritional screening: No deficits noted. Tuberculosis screening: No symptoms or risk factors identified. Vital Signs: 19:01 BP 177 / 102; Pulse 88; Resp 17; Temp 97.7; Pulse Ox 100% ; Weight 79.38 kg; Height 5 jl7 ft. 4 in. ; Pain 8/10; 19:01 Body Mass Index 30.04 (79.38 kg, 162.56 cm) jl7 19:01 Pain Scale: Adult jl7 ED Course: 18:28 Patient arrived in ED. rg4 18:35 Debbie Nova FNP-C [facility] snw 18:35 Hill Grady MD is Attending Physician. snw 19:02 Triage completed. jl7 19:02 Arm band placed on right wrist. Patient placed in waiting room, Patient notified of jl7 wait time. 19:19 Mehreen Boogie, RN is Primary Nurse. vc1 19:24 Patient has correct armband on for positive identification. Bed in low position. Call vc1 light in reach. 20:03 Forearm Right XRAY In Process Unspecified. EDMS 20:18 US Extremity Venous Unilateral Ltd In Process Unspecified. EDMS 21:03 Provided Education on: discharge teaching. as6 21:03 No provider procedures requiring assistance completed. Patient did not have IV access as6 during this emergency room visit. Sling applied to right arm. Administered Medications: 19:40 Drug: Hydrocodone-Acetaminophen PO (7.5 mg-325 mg) 1 tabs Route: PO; vc1 21:03 Follow up: Response: No adverse reaction as6 19:40 Drug: Ibuprofen PO 600 mg Route: PO; vc1 21:03 Follow up: Response: No adverse reaction as6 Medication: 19:24 VIS not applicable for this client. vc1 Outcome: 20:52 Discharge ordered by . snw 21:04 Discharged to home ambulatory, with significant other. as6 21:04 Condition: stable 21:04 Discharge instructions given to patient, Instructed on discharge instructions, follow up and referral plans. medication usage, Demonstrated understanding of instructions, follow-up care, medications, Prescriptions given X 2. 21:04 Patient left the ED. as6 Signatures: Dispatcher [employer] EDMS Nova, Debbie, PROP WORKER-C PROP WORKER-Csnw Bita Medrano rg4 Yandel Barriga, RN RN jl7 Mckay Hart, RN RN as6 Mehreen Boogie, RN RN vc1
--- NOTE | 2022-10-04 21:36 | RAD REPORT ---
EXAM DESCRIPTION: RAD - Forearm Right - 10/04/2022 8:01 pm CLINICAL HISTORY: PAIN COMPARISON: No comparisons TECHNIQUE: Right forearm, 2 views. FINDINGS: No fracture is identified. There is no dislocation or periosteal reaction noted. Pronounced soft tissue swelling along the volar aspect of the forearm. No foreign body or other soft tissue abnormality. IMPRESSION: Soft tissue swelling as above. No acute osseus abnormality.
[2022-10-04 21:50] VITALS: BP 177/102; TEMP 97.7; O2SAT 100
== END 2022-10-04 21:04 | disposition home or self-care (01) ==
LOC: ER 18:27
DX: S50.11XA Contusion of right forearm, initial encounter (principal)
CPT/HCPCS: 93971; 99283

== ENCOUNTER 2023-10-19 10:02 | Emergency (ER) | payer SELFPAY ==
[2023-10-19] MEDS ORDERED: ONDANSETRON 4 MG/2 ML VIAL ONE (10:43)
[2023-10-19] MEDS ORDERED: KETOROLAC 30 MG/ML INJ ONE (10:43)
[2023-10-19] MEDS ORDERED: FENTANYL CITR 100 MCG/2 ML ONE (10:44)
[2023-10-19] MEDS ORDERED: NA CHLORIDE 0.9% 1,000 ML ONE (10:44)
[2023-10-19 10:47] LABS: Absolute Eosinophils 0.2 K/uL (0-0.5); Absolute Lymphocytes (CBC) 1.4 K/uL (0.7-4.9); Absolute Monocytes 0.5 K/uL (0.1-1.3); Absolute Neutrophil 5.3 K/uL (1.8-8.0); Basophils % 0.5 % (0-1.3); Eosinophils % 2.1 % (0-4.4); Hematocrit 31.9 % (36.0-45.0); Hemoglobin 9.9 g/dL (12.0-15.0); Lymphocytes % 18.8 % (15.3-44.8); MCH 23.1 pg (27.0-35.0); MCV 74.5 fL (80-100); MPV 7.8 fL (7.6-11.3); Monocytes % 6.8 % (3.3-12.3); Neutrophils % 71.8 % (41.7-73.7); Platelets 275 thou/uL (152-406); RBC Red Blood Cell Count 4.27 M/uL (3.86-4.86); Red Cell Distribution Width 19.1 % (12.1-15.2)
[2023-10-19 11:05] LABS: Albumin 3.4 g/dL (3.4-5.0); Albumin/Globulin Ratio 0.8 (1.1-1.8); Anion Gap 8.4 mEq/L (5.0-15.0); Bilirubin Total 0.8 mg/dL (0.2-1.0); Globulin 4.2 g/dL (2.3-3.5); Potassium 4.4 mEq/L (3.5-5.1); Protein, Total 7.6 g/dL (6.4-8.2)
--- NOTE | 2023-10-19 12:18 | RAD REPORT ---
EXAM DESCRIPTION: RAD - Forearm Right - 10/19/2023 12:09 pm CLINICAL HISTORY: Right arm pain FINDINGS: No acute fracture seen Tiny bony/calcific density adjacent to the coronoid process of the ulna is chronic
--- NOTE | 2023-10-19 12:21 | EDPHYS ---
Physician Documentation [facility] Name: Titi Mcduffie Age: 28 yrs Sex: Female : 1995 Arrival Date: 10/19/2023 Time: 10:02 Bed 19 Private MD: ED Physician Hill Grady HPI: 10/18 10:51 This 28 yrs old Female presents to ER via Ambulatory with complaints of Arm ruddy Pain. 10:51 The patient or guardian complains of decreased range of motion, pain, that is acute. ruddy The complaints affect the dorsal aspect of right forearm and palmar aspect of right forearm. Context: The problem was sustained at an unknown location. Onset: The symptoms/episode began/occurred 3 day(s) ago. Treatment prior to arrival includes: wm wrap, prescription medications. Modifying factors: The symptoms are alleviated by remaining still, the symptoms are aggravated by movement. Associated signs and symptoms: The patient has no apparent associated signs or symptoms. Severity of symptoms: At their worst the symptoms were mild, in the emergency department the symptoms are unchanged. The patient has experienced similar episodes in the past, several times. Historical: - Allergies: 10:13 No Known Allergies; cm10 - Home Meds: 10:13 None [Active]; cm10 - PMHx: 10:13 None; cm10 - PSHx: 10:13 gastric sleeve; Ligation of fallopian tube; Tonsillectomy; cm10 - Immunization history:: Adult Immunizations up to date. - Infectious Disease History:: Denies. - Social history:: Smoking status: Reported history of juuling and/or vaping. ROS: 10:54 Constitutional: Negative for fever, chills, and weight loss, Eyes: Negative for injury, ruddy pain, redness, and discharge, ENT: Negative for injury, pain, and discharge, Neck: Negative for injury, pain, and swelling, Cardiovascular: Negative for chest pain, palpitations, and edema, Respiratory: Negative for shortness of breath, cough, wheezing, and pleuritic chest pain, Abdomen/GI: Negative for abdominal pain, nausea, vomiting, diarrhea, and constipation, Back: Negative for injury and pain, : Negative for injury, bleeding, discharge, and swelling, Skin: Negative for injury, rash, and discoloration, Neuro: Negative for headache, weakness, numbness, tingling, and seizure, Psych: Negative for depression, anxiety, suicide ideation, homicidal ideation, and hallucinations, Allergy/Immunology: Negative for hives, rash, and allergies, Endocrine: Negative for neck swelling, polydipsia, polyuria, polyphagia, and marked weight changes, Hematologic/Lymphatic: Negative for swollen nodes, abnormal bleeding, and unusual bruising, 10:54 MS/extremity: Positive for decreased range of motion, pain, swelling, tenderness, of the right arm, Exam: 10:54 Constitutional: This is a well developed, well nourished patient who is awake, alert, ruddy and in no acute distress. Head/Face: Normocephalic, atraumatic. Eyes: Pupils equal round and reactive to light, extra-ocular motions intact. Lids and lashes normal. Conjunctiva and sclera are non-icteric and not injected. Cornea within normal limits. Periorbital areas with no swelling, redness, or edema. ENT: Nares patent. No nasal discharge, no septal abnormalities noted. Tympanic membranes are normal and external auditory canals are clear. Oropharynx with no redness, swelling, or masses, exudates, or evidence of obstruction, uvula midline. Mucous membranes moist. Neck: Trachea midline, no thyromegaly or masses palpated, and no cervical lymphadenopathy. Supple, full range of motion without nuchal rigidity, or vertebral point tenderness. No Meningismus. Chest/axilla: Normal chest wall appearance and motion. Nontender with no deformity. No lesions are appreciated. Cardiovascular: Regular rate and rhythm with a normal S1 and S2. No gallops, murmurs, or rubs. Normal PMI, no JVD. No pulse deficits. Respiratory: Lungs have equal breath sounds bilaterally, clear to auscultation and percussion. No rales, rhonchi or wheezes noted. No increased work of breathing, no retractions or nasal flaring. Abdomen/GI: Soft, non-tender, with normal bowel sounds. No distension or tympany. No guarding or rebound. No evidence of tenderness throughout. Back: No spinal tenderness. No costovertebral tenderness. Full range of motion. Skin: Warm, dry with normal turgor. Normal color with no rashes, no lesions, and no evidence of cellulitis. Neuro: Awake and alert, GCS 15, oriented to person, place, time, and situation. Cranial nerves II-XII grossly intact. Motor strength 5/5 in all extremities. Sensory grossly intact. Cerebellar exam normal. Normal gait. Psych: Awake, alert, with orientation to person, place and time. Behavior, mood, and affect are within normal limits. 10:54 Musculoskeletal/extremity: Extremities: grossly normal except: noted in the dorsal aspect of right forearm and palmar aspect of right forearm: decreased ROM, pain, ROM: intact in all extremities, full active range of motion, full passive range of motion, Circulation is intact in all extremities. Sensation intact. Compartment Syndrome exam of affected extremity: is normal. Weight bearing: able to fully bear weight, DVT Exam: no swelling, no appreciated bluish discoloration, no erythema, no increased warmth, pain, tenderness, Vital Signs: 10:14 BP 168 / 107; Pulse 87; Resp 16; Temp 97.3; Pulse Ox 100% on R/A; Weight 85.73 kg; cm10 Height 5 ft. 4 in. ; Pain 8/10; 12:39 BP 155 / 81; Pulse 79; Resp 16; Pulse Ox 99% ; bp 10:14 Body Mass Index 32.44 (85.73 kg, 162.56 cm) cm10 10:14 Pain Scale: Adult cm10 MDM: 10:07 Patient medically screened. [facility] 10:58 Differential diagnosis: closed fracture, contusion, tendonitis. Data reviewed: vital ruddy signs, nurses notes, lab test result(s), radiologic studies, doppler, plain films. Consideration of Admission/Observation Escalation of care including admission/observation considered. I considered the following discharge prescriptions or medication management in the emergency department Medications were administered in the Emergency Department. See MAR. Independent interpretation of the following test(s) in the Emergency Department X-Ray: My interpretation is no fx , no gas. Test considered but Not performed: Labs: no cp , no sob . Historians other than the Patient: Spouse/Significant Other: well informed. Care significantly affected by the following chronic conditions: none , old right forearm trauma. Counseling: I had a detailed discussion with the patient and/or guardian regarding the historical points, exam findings, and any diagnostic results supporting the discharge/admit diagnosis, lab results, radiology results, the need for outpatient follow up, for definitive care, a family practitioner, a orthopedic surgeon. 10/18 10:34 Order name: CBC with Diff; Complete Time: 12:16 [facility] 10/18 10:34 Order name: Comprehensive Metabolic Panel; Complete Time: 12:16 [facility] 10/18 10:34 Order name: Forearm Right XRAY; Complete Time: 12:20 [facility] 10/18 10:40 Order name: UPPER EXTREMITY VENOUS UNILATE; Complete Time: 12:23 EDMS Administered Medications: 11:30 Drug: NS 0.9% IV 1000 ml IV at 1 bolus Per protocol; 1000 mL bolus Route: IV; Rate: 1 bp bolus; Site: left antecubital; 12:40 Follow up: IV Status: Completed infusion; IV Intake: 1000ml bp 11:31 Drug: Ketorolac IVP 30 mg IVP once Route: IVP; Site: left antecubital; bp 12:40 Follow up: Response: No adverse reaction bp 11:31 Drug: Ondansetron IVP 4 mg IVP once; over 2 minutes Route: IVP; Site: left antecubital; bp 12:40 Follow up: Response: No adverse reaction bp 11:31 Drug: fentaNYL (PF) IVP 50 mcg IVP once Route: IVP; Site: left antecubital; bp 12:40 Follow up: Response: No adverse reaction bp Disposition Summary: 10/19/23 12:21 Discharge Ordered Notes: Location: Home ruddy Problem: new ruddy Symptoms: have improved ruddy Condition: Stable ruddy Diagnosis - Unspecified symptoms and signs involving the musculoskeletal system ruddy - Pain in right forearm ruddy - Anemia, unspecified ruddy Followup: ruddy - With: Private Physician - When: 2 - 3 days - Reason: Recheck today's complaints, Continuance of care, Re-evaluation by your physician Followup: ruddy - With: Gee James MD - When: 2 - 3 days - Reason: Recheck today's complaints, Re-evaluation by your physician Discharge Instructions: - Discharge Summary Sheet ruddy - Anemia ruddy - Musculoskeletal Pain ruddy - How to Use Cold Therapy ruddy Forms: - Medication Reconciliation Form ruddy - Antibiotic Education ruddy - Prescription Opioid Use ruddy - Patient Portal Instructions [facility] - Leadership Thank You Letter [facility] Prescriptions: - Diclofenac Sodium 75 mg Oral tablet, delayed release (enteric coated) - take 1 tablet ORAL route 2 times per day; 20 tablet; Refills: 0, Product ruddy Selection Permitted - Medrol (Maurice) 4 mg Oral Tablets, Dose Pack - take 1 tablet ORAL route as directed - follow package instructions; 1 packet; ruddy Refills: 0, Product Selection Permitted Signatures: Dispatcher [employer] Hill Castaneda MD MD cha Peltier, Brian RN RN Kateryna Tolbert RN RN cm10 Corrections: (The following items were deleted from the chart) 10:40 10:35 Extremity Venous [email or web address] ordered. EDDE EDMS
--- NOTE | 2023-10-19 12:21 | ER ---
Nurse's Notes [facility] Name: Titi Mcduffie Age: 28 yrs Sex: Female : 1995 Arrival Date: 10/19/2023 Time: 10:02 Bed 19 Private MD: Diagnosis: Unspecified symptoms and signs involving the musculoskeletal system;Pain in right forearm;Anemia, unspecified Presentation: 10/18 10:14 Chief complaint: Patient states: Right arm pain X1 month. Pt reports that she injured cm10 her arm a year ago and 1 month ago the pain came back. pt reports taking OTC meds with no relief. Coronavirus screen: Client denies travel out of the [place] in the last 14 days. Ebola Screen: Patient denies travel to an Ebola-affected area in the 21 days before illness onset. No symptoms or risks identified at this time. Initial Sepsis Screen: Does the patient meet any 2 criteria? No. Patient's initial sepsis screen is negative. Does the patient have a suspected source of infection? No. Patient's initial sepsis screen is negative. Risk Assessment: Do you want to hurt yourself or someone else? Patient reports no desire to harm self or others. Onset of symptoms was October 19, 2023. 10:14 Method Of Arrival: Ambulatory cm10 10:14 Acuity: ANITA 4 cm10 Triage Assessment: 10:13 General: Appears in no apparent distress. comfortable, Behavior is calm, cooperative. cm10 Pain: Complains of pain in right arm Pain does not radiate. Pain currently is 8 out of 10 on a pain scale. Quality of pain is described as burning, sharp, shooting, stabbing. Neuro: No deficits noted. Level of Consciousness is awake, alert, obeys commands, Oriented to person, place, time, situation, Appropriate for age. Respiratory: No deficits noted. Airway is patent Respiratory effort is even, unlabored, Respiratory pattern is regular, symmetrical. Historical: - Allergies: 10:13 No Known Allergies; cm10 - Home Meds: 10:13 None [Active]; cm10 - PMHx: 10:13 None; cm10 - PSHx: 10:13 gastric sleeve; Ligation of fallopian tube; Tonsillectomy; cm10 - Immunization history:: Adult Immunizations up to date. - Infectious Disease History:: Denies. - Social history:: Smoking status: Reported history of juuling and/or vaping. Screenin:45 [facility] ED Fall Risk Assessment (Adult) History of falling in the last 3 months, bp including since admission No falls in past 3 months (0 pts) Confusion or Disorientation No (0 pts) Intoxicated or Sedated No (0 pts) Impaired Gait No (0 pts) Mobility Assist Device Used No (0 pt) Altered Elimination No (0 pt) Score/Fall Risk Level 0 - 2 = Low Risk. Abuse screen: Denies threats or abuse. Denies injuries from another. Nutritional screening: No deficits noted. Tuberculosis screening: No symptoms or risk factors identified. Assessment: 10:45 General: Appears uncomfortable, Behavior is cooperative, appropriate for age, anxious. bp Pain: Complains of pain in right arm. Vital Signs: 10:14 BP 168 / 107; Pulse 87; Resp 16; Temp 97.3; Pulse Ox 100% on R/A; Weight 85.73 kg; cm10 Height 5 ft. 4 in. ; Pain 8/10; 12:39 BP 155 / 81; Pulse 79; Resp 16; Pulse Ox 99% ; bp 10:14 Body Mass Index 32.44 (85.73 kg, 162.56 cm) cm10 10:14 Pain Scale: Adult cm10 ED Course: 10:04 Patient arrived in ED. im 10:06 Hill Grady MD is Attending Physician. [facility] 10:11 Jonathan Holt, TAYLOR is Primary Nurse. bp 10:15 Triage completed. cm10 10:15 Arm band placed on Patient placed in an exam room, on a stretcher. cm10 10:45 Patient has correct armband on for positive identification. bp 10:46 Inserted saline lock: 22 gauge in left antecubital area, using aseptic technique. Blood bp collected. Flushed with 10 mL NS. 11:23 UPPER EXTREMITY VENOUS UNILATE In Process Unspecified. EDMS 12:11 Forearm Right XRAY In Process Unspecified. EDMS 12:20 Gee James MD is Referral Physician. [facility] 12:39 Provided Education on: N/A. bp 12:39 No provider procedures requiring assistance completed. IV discontinued, intact, bp bleeding controlled, No redness/swelling at site. Pressure dressing applied. Administered Medications: 11:30 Drug: NS 0.9% IV 1000 ml IV at 1 bolus Per protocol; 1000 mL bolus Route: IV; Rate: 1 bp bolus; Site: left antecubital; 12:40 Follow up: IV Status: Completed infusion; IV Intake: 1000ml bp 11:31 Drug: Ketorolac IVP 30 mg IVP once Route: IVP; Site: left antecubital; bp 12:40 Follow up: Response: No adverse reaction bp 11:31 Drug: Ondansetron IVP 4 mg IVP once; over 2 minutes Route: IVP; Site: left antecubital; bp 12:40 Follow up: Response: No adverse reaction bp 11:31 Drug: fentaNYL (PF) IVP 50 mcg IVP once Route: IVP; Site: left antecubital; bp 12:40 Follow up: Response: No adverse reaction bp Medication: 10:45 VIS not applicable for this client. bp Intake: 12:40 IV: 1000ml; Total: 1000ml. bp Outcome: 12:21 Discharge ordered by . ruddy 12:39 Discharged to home ambulatory, with family, bp 12:39 Condition: stable 12:39 Discharge instructions given to patient, Instructed on discharge instructions, follow up and referral plans. medication usage, Demonstrated understanding of instructions, follow-up care, medications, Prescriptions given X 2, 12:41 Patient left the ED. bp Signatures: Dispatcher [employer] Hill Castaneda MD MD cha Peltier, Brian, RN RN bp Mallika Barclay Clarissa, RN RN cm10
--- NOTE | 2023-10-19 12:22 | RAD REPORT ---
EXAM DESCRIPTION: US - UPPER EXTREMITY VENOUS UNILATE - 10/19/2023 11:21 am CLINICAL HISTORY: Right upper extremity pain COMPARISON: 2022 FINDINGS: The right internal jugular, subclavian, brachial, axillary, cephalic, basilic, radial and ulnar veins demonstrate phasic signal. The veins are generally compressible. Doppler demonstrates good flow Grayscale, color and spectral analysis performed on all vessels IMPRESSION: No evidence of thrombus involving the right upper extremity
[2023-10-19 12:49] VITALS: TEMP 97.3
[2023-10-19 12:59] VITALS: BP 155/81; O2SAT 99
== END 2023-10-19 12:41 | disposition home or self-care (01) ==
LOC: ER 10:02
DX: R29.91 Unspecified symptoms and signs involving the musculoskeletal system (principal); D64.9 Anemia, unspecified
CPT/HCPCS: 36415; 80053; 85025; 93971; 96361; 96374; 96375; 99284; J2405; J3010; J7030